=== PATIENT | female | born 1980 | race Asian ===

== ENCOUNTER → 2016-08-01 | Outpatient (REF) ==
[~2016-08-01] MED LIST: IBU800 M1 PO; LORTAB 5/500 501 TAB PO; MOTRIN 600600 MG/TAB PO; NAPROSYN375 MG PO; NO HOME MEDICATIONS; YAZ 28 3 MG-0.01 TAB PO; birth control pill
== END ==
LOC: WSOH 13:03
DX: Z01.89 Encounter for other specified special examinations (principal)

== ENCOUNTER → 2017-01-30 | Outpatient (REF) ==
[2017-01-30 22:49] LABS: THYROID STIMULATING HORMONE 0.987 uIU/mL (0.465-4.680)
== END ==
LOC: ZLAB.WCH 18:44
PROVIDERS: Internal Medicine
DX: Z01.89 Encounter for other specified special examinations (principal)

== ENCOUNTER → 2018-02-11 | Outpatient (REF) | LOC: ZLAB.WCH 16:22 | DX: Z01.89 Encounter for other specified special examinations (principal) ==

== ENCOUNTER 2018-07-12 09:15 | Emergency (ER) | payer OTHER ==
[~2018-07-12] VITALS: Ht 160 cm; Wt 54.5 kg
[2018-07-12 09:24] VITALS: TEMP 98.5
[2018-07-12 12:48] VITALS: BP 141/97; PULSE 69
[2018-07-12 13:55] LABS: COLLECTION METHOD CLEAN CATCH
[2018-07-12 14:00] LABS: ALBUMIN 4.8 gm/dL (3.5-5.0); BILIRUBIN,TOTAL 0.9 mg/dL (0.0-1.0); CREATININE, serum 0.65 mg/dL (0.52-1.25); POTASSIUM 3.8 mmol/L (3.4-5.0); TOTAL PROTEIN 8.8 gm/dL (6.4-8.2)
[2018-07-12 14:01] LABS: AMORPHOUS CRYSTAL Present /uL; PH 8 (5-8); SQUAMOUS EPITHELIAL 0-2 /hpf; URINE APPEARANCE Cloudy; URINE BACTERIA None Seen /hpf; URINE BILIRUBIN Negative (NEGATIVE); URINE BLOOD Negative (NEGATIVE); URINE COLOR Yellow; URINE GLUCOSE Negative (NEGATIVE); URINE KETONE Negative (NEGATIVE); URINE LEUKOCYTE ESTERASE Negative (NEGATIVE); URINE NITRATE Negative (NEGATIVE); URINE PROTEIN(semi-quant) Negative (NEGATIVE); URINE RBC 0-2 /hpf; URINE UROBILINOGEN Negative (NEGATIVE); URINE WBC 0-2 /hpf
[2018-07-12 14:14] LABS: BASO % 0.4 % (0.0-2.0); EOS % 0.2 % (0-4.0); GRAN # 6.8 (1.4-6.5); GRAN % 80.1 % (42.2-75.2); HEMATOCRIT 43.4 % (37.0-47.0); HEMOGLOBIN 15.8 g/dl (12.5-16.0); LYMPH # 1.1 (1.2-3.4); LYMPH % 12.9 % (20.0-51.0); MEAN CELL VOLUME 91 fl (80.0-100.0); MEAN CORPUSCULAR HEMOGLOBIN 33 pg (27.0-31.0); MEAN CORPUSCULAR HGB CONC 36 g/dl (33.0-37.0); MEAN PLATELET VOLUME 9.5 fl (7.4-10.4); MONO # 0.5 (0.1-0.6); MONO % 5.8 % (1.7-9.3); PLATELET COUNT 272 K/mm3 (130-400); RED BLOOD COUNT 4.79 M/mm3 (4.10-5.30); REDCELL DISTRIBUTION WIDTH-CV 14.1 % (11.5-14.5)
[2018-07-12] MEDS ORDERED: EMOQUETTE 0.151 TAB PO (18:14)
== END 2018-07-12 12:49 | disposition home or self-care (01) ==
LOC: COL.ER 09:15
PROVIDERS: Family Medicine
DX: R10.11 Right upper quadrant pain (principal); R10.13 Epigastric pain; I10 Essential (primary) hypertension; Z79.1 Long term (current) use of non-steroidal anti-inflammatories (NSAID); Z90.49 Acquired absence of other specified parts of digestive tract

== ENCOUNTER 2019-07-12 20:55 | Emergency (ER) | payer OTHER ==
[~2019-07-12] VITALS: Ht 160 cm; Wt 60.5 kg
[~2019-07-12 20:55] MED LIST changes: +EMOQUETTE 0.151 TAB PO
[2019-07-12 21:05] VITALS: BP 133/90
[2019-07-12 21:34] LABS: STREP SCREEN NEGATIVE
[2019-07-12 22:57] VITALS: PULSE 101; TEMP 99.2
[2019-07-12] MEDS ORDERED: TAMIFLU 75MG75 MG PO (22:59)
== END 2019-07-12 23:02 | disposition home or self-care (01) ==
LOC: COL.ER 20:55
PROVIDERS: Nurse Practitioner
DX: J10.1 Influenza due to other identified influenza virus with other respiratory manifestations (principal); Z90.89 Acquired absence of other organs